=== PATIENT | female | born 1950 | race Caucasian/White ===

== ENCOUNTER 2016-10-15 08:30 | Inpatient (IN) | payer OTHER ==
[2016-10-15 08:04] LABS: BILIRUBIN NEGATIVE (NEGATIVE); BLOOD TRACE-INTACT Ery/uL (NEGATIVE); CLARITY CLEAR (CLEAR); COLOR YELLOW (YELLOW); GLUCOSE (U) NORMAL (NORMAL); KETONE (U) NEGATIVE (NEGATIVE); LEUKOCYTES NEGATIVE Leu/uL (NEGATIVE); NITRITE NEGATIVE (NEGATIVE); PROTEIN NEGATIVE (NEGATIVE); UROBILINOGEN 0.2 mg/dL (0.2-1.0); pH 5.5 (5.0-9.0)
[2016-10-16 04:53] LABS: HCT 37.1 % (37.0-47.0); HGB 12.4 g/dl (12.5-16.0); MCH 29.5 pg (25.0-31.0); MCHC 33.4 g/dL (32.0-36.0); MCV 88.1 fL (78.0-100.0); MPV 8.1 fL (6.0-9.5); RBC 4.21 M/uL (4.20-5.40); RDW 13.8 % (11.5-14.0); WBC 7.8 K/uL (4.0-10.5)
[2016-10-16 05:11] LABS: CREATININE 0.9 mg/dL (0.5-1.0)
[2016-10-17 05:41] LABS: HGB 11.9 g/dl (12.5-16.0); MCH 29.7 pg (25.0-31.0); MCV 87.3 fL (78.0-100.0); MPV 8.4 fL (6.0-9.5); RBC 4.01 M/uL (4.20-5.40); RDW 13.2 % (11.5-14.0); WBC 6.1 K/uL (4.0-10.5)
[2016-10-17 05:54] LABS: CREATININE 0.8 mg/dL (0.5-1.0); POTASSIUM 3.2 mmol/L (3.5-5.1)
[2016-10-18 05:05] LABS: HCT 35.7 % (37.0-47.0); MCH 29.2 pg (25.0-31.0); MCHC 33.6 g/dL (32.0-36.0); MCV 86.9 fL (78.0-100.0); MPV 8.3 fL (6.0-9.5); RBC 4.11 M/uL (4.20-5.40); RDW 13.3 % (11.5-14.0); WBC 7.7 K/uL (4.0-10.5)
[2016-10-18 05:20] LABS: CREATININE 0.7 mg/dL (0.5-1.0); MAGNESIUM 2.13 mg/dL (1.40-2.10); POTASSIUM 3.8 mmol/L (3.5-5.1)
== END 2016-10-18 12:45 | DRG 470 ==
LOC: FMS 08:30
PROVIDERS: Internal Medicine Nephrology; ADMIT Legal Medicine
PROC: 8E0YXBZ Computer Assisted Procedure of Lower Extremity (ICD-10-PCS; 2016-10-15)
PROC: 0SRD0J9 Replacement of Left Knee Joint with Synthetic Substitute, Cemented, Open Approach (ICD-10-PCS; principal; 2016-10-15 07:00)
DX: M17.12 Unilateral primary osteoarthritis, left knee (principal); E87.1 Hypo-osmolality and hyponatremia; I10 Essential (primary) hypertension; M21.162 Varus deformity, not elsewhere classified, left knee; M71.22 Synovial cyst of popliteal space [Baker], left knee; K21.9 Gastro-esophageal reflux disease without esophagitis; R11.0 Nausea; E87.6 Hypokalemia; Z82.49 Family history of ischemic heart disease and other diseases of the circulatory system; Z88.8 Allergy status to other drugs, medicaments and biological substances; Z82.3 Family history of stroke; Z80.9 Family history of malignant neoplasm, unspecified
CPT/HCPCS: 36415; 73560; 80048; 81003; 83735; 86850; 86900; 86901; 88305; 88311; 94010; 94668; 94762; 97110; 97116; 97162; 97165; 97530-GP; 97535; C1776; J0131; J1885; J2270; J2274; J2405; J2704; J2795; J3010

== ENCOUNTER 2016-10-18 12:45 | Inpatient (IN) | payer OTHER ==
[2016-10-20 06:11] LABS: CREATININE 0.7 mg/dL (0.5-1.0); POTASSIUM 3.3 mmol/L (3.5-5.1)
--- NOTE | 2016-10-23 11:12 | NUR ---
65 YEAR OLD FEMALE DC HOME S/P LEFT KNEE REPLACEMENT A/O X3, WENT OVER DC INSTRUCTIONS, ANSWERED ALL QUESTIONS R/V
--- NOTE | 2016-10-23 12:12 | NUR ---
PT. D/C HOME WITH SPOUSE THIS DATE. [facility] TO DELIVER A ROLLING WALKER UPON DISCHARGE. PT. REQUESTED OUTPT. AT [facility]. FIRST APPT. IS 10/24/16 @ 11:00 A.M. WITH PARI. PT. TAM DOES NOT REQUIRE A PREAUTH. D/C NOTICE AND QUESTIONNAIRE GIVEN.
[2016-10-23] MEDS ORDERED: XARELTO10 MG PO (12:47)
[2016-10-23] MEDS ORDERED: ACETAMINOPHEN325 MG PO (12:47)
[2016-10-23] MEDS ORDERED: COLACE100 MG PO (12:47)
[2016-10-23] MEDS ORDERED: CENTRUM SILVER1 EAC1 PO (12:48)
[2016-10-23] MEDS ORDERED: FEOSOL325 MG PO (12:48)
[2016-10-23] MEDS ORDERED: GLUCOSAMINE CH1 EAC3 PO (12:48)
[2016-10-23] MEDS ORDERED: BENICAR HCT 401 EAC1 PO (12:49)
[2016-10-23] MEDS ORDERED: ADALAT CC30 MG PO (12:49)
[2016-10-23] MEDS ORDERED: TRIAMCINOLONE 080 GM TOP (12:50)
[2016-10-23] MEDS ORDERED: KENALOG100 GM TOP (12:50)
[2016-10-23] MEDS ORDERED: OMEPRAZOLE 20MG20 MG PO (12:51)
[2016-10-23] MEDS ORDERED: XOLAIR150 MG SC (12:51)
[2016-10-23] MEDS ORDERED: HAIR SKIN NAIL1 EACH PO (12:51)
[2016-10-23] MEDS ORDERED: LAXATIVE OF CHOICE (12:51)
[2016-10-23] MEDS ORDERED: PERCOCET 5/3251 TAB PO (12:52)
== END 2016-10-23 11:14 | disposition home or self-care (01) | DRG 561 ==
LOC: FSNU 12:45
PROVIDERS: Internal Medicine Nephrology; ADMIT Legal Medicine
DX: Z47.1 Aftercare following joint replacement surgery (principal); I10 Essential (primary) hypertension; Z96.652 Presence of left artificial knee joint; E87.6 Hypokalemia; K21.9 Gastro-esophageal reflux disease without esophagitis; R11.2 Nausea with vomiting, unspecified
CPT/HCPCS: 36415; 80048; 97110; 97116; 97161; 97166; 97530; 97530-GP; 97535